=== PATIENT | female | born 1955 | race Caucasian/White ===

== ENCOUNTER 2021-11-24 18:24 | Inpatient (IN) | payer MEDICARE ==
[~2021-11-24] VITALS: Ht 149.9 cm; Wt 98.9 kg
[2021-11-24] MEDS ORDERED: ALBU8.5H8 INH (18:53)
[2021-11-24] MEDS ORDERED: ZOLP10TA2 PO (18:53)
[2021-11-24] MEDS ORDERED: HYDR-4209 PO (18:53)
[2021-11-24] MEDS ORDERED: IPRA0.2S6 NEB (18:53)
[2021-11-24] MEDS ORDERED: HYDR-3976 PO (18:53)
[2021-11-24] MEDS ORDERED: DULO60CA45 PO (18:53)
[2021-11-24] MEDS ORDERED: CLON1TAB12 PO (18:54)
[2021-11-24] MEDS ORDERED: GABA300C PO (18:54)
[2021-11-24] MEDS ORDERED: ERGO1POW10 PO (18:54)
--- NOTE | 2021-11-24 19:26 | NUR ---
Notified nursing superv. about getting a sitter for this pt. (SI and 5150 hold).
--- NOTE | 2021-11-24 19:35 | NUR ---
Dr. Campbell in room for GEN.
[2021-11-24] MEDS ORDERED: HYDROCODONE/APAP 5-325MG TABLET PO ONE (19:45)
--- NOTE | 2021-11-24 19:52 | NUR ---
pt denies suicidial ideations she states she is having depression and took vicodin that her sister . she is aware she is on a 5150 hold and will be admitted to the psych unit.
[2021-11-24] MEDS ORDERED: HYDROCODONE/APAP 5-325MG TABLET ONE (20:15)
[2021-11-24] MEDS ORDERED: ALBUTEROL SULFATE 2.5 MG/3 ML NEBU ONE (20:32)
[2021-11-24] MEDS ORDERED: IPRATROPIUM BROMIDE 0.5 MG/2.5 ML NEBU ONE (20:32)
--- NOTE | 2021-11-24 20:34 | NUR ---
after assisting the pt with the bedpan she had audible wheezing noted. I informed Dr. Campbell and we called respiratory therapy for a stat breathing treatment. Respiratory is now in the room tending to the pt.
[2021-11-24] MEDS ORDERED: ALBUTEROL SULFATE 2.5 MG/3 ML NEBU NEB ONE (20:45)
[2021-11-24] MEDS ORDERED: IPRATROPIUM BROMIDE 0.5 MG/2.5 ML NEBU NEB ONE (20:45)
[2021-11-24 21:13] LABS: *BILIRUBIN,URIN NEGATIVE (NEGATIVE); *BLOOD, URINE NEGATIVE (NEGATIVE); *CLARITY,URINE CLEAR (CLEAR); *COLOR,URINE YELLOW (YELLOW); *KETONES,URINE NEGATIVE (NEGATIVE); *UROBILINOGEN,URINE 0.2 E.U./dl (NORMAL); LEUKOCYTE ESTERASE ,URINE NEGATIVE (NEGATIVE); NITRITE, URINE NEGATIVE (NEGATIVE); PH,URINE 5.5 (5.0-8.0); UGLUCOSE NEGATIVE (NEGATIVE)
--- NOTE | 2021-11-24 22:14 | NUR ---
per Dr. Campbell pt is medically cleared for mental healtlh.
--- NOTE | 2021-11-24 22:23 | NUR ---
report given to treasure MCLAUGHLIN in mental health. pt will go to room 137a.
[2021-11-24 23:15] VITALS: BP 142/92
--- NOTE | 2021-11-24 23:28 | NUR ---
pt was transported to room 137 a in mental health unit. RN Elosia and Will there to receive the pt. pt transported with all belongings. Belongings were given to RN in mental health unit.
[2021-11-24] MEDS ORDERED: MAG HYDROX/AL HYDROX/SIMETH 30 ML LIQUID UDC PO PRN (23:45)
[2021-11-24] MEDS ORDERED: MAGNESIUM HYDROXIDE 30 ML LIQUID UDC PO PRN (23:45)
[2021-11-24] MEDS ORDERED: BLOOD SUGAR DIAGNOSTIC 1 EACH STRIP VI ONE (23:45)
[2021-11-24] MEDS ORDERED: ZOLPIDEM 5 MG TABLET PO PRN (23:45)
--- NOTE | 2021-11-24 23:50 | NUR ---
ADMITTED APPROX 20 MIN EARLIER, 66 YEARS OLD FEMALE TO [facility] ON A 5150 HOLD FOR DTS. UPON ADMISSION, PATIENT NOTE A/O X 4 CALM AND PLEASANT. SHE IS ABLE TO COMPLY WITH THE ADMISSION PROCESS. FACE TO FACE ASSESSMENT WAS DONE. ADVISEMENT WAS GIVEN TO PATIENT. SHE WAS ALSO GIVEN THE BOOKLET OF PATIENT'S RIGHT IN MENTAL HEALTH FACILITIES. PT IS UNDER THE CARE OF DR ANTONIO AND REGLA MCELROY NP. NAVI WAS NOTIFIED OF PATIENT'S ADMISSION AND ALL HER MEDICATION WERE RECONCILED. WILL CONTINUE TO MONITOR WITH Q15 MIN CHECKS.
[2021-11-25] MEDS ORDERED: IPRATROPIUM BROMIDE 0.5 MG/2.5 ML NEBU NEB PRN (00:15)
[2021-11-25] MEDS ORDERED: ALBUTEROL SULFATE 2.5 MG/3 ML NEBU NEB PRN (00:15)
[2021-11-25 07:30] VITALS: BP 134/90
[2021-11-25] MEDS ORDERED: HYDROCODONE BIT PO SCH (09:00)
[2021-11-25] MEDS ORDERED: ACETAMINOPHEN PO SCH (09:00)
[2021-11-25] MEDS: GABAPENTIN 300 MG CAPSULE PO SCH ×4 (10:02→20:22)
[2021-11-25] MEDS: HYDROCODONE/APAP 5-325MG TABLET PO PRN ×2 (10:03→18:07)
[2021-11-25] MEDS: VENLAFAXINE XR 75 MG TAB.ER.24H PO SCH (14:23)
[2021-11-25 16:00] VITALS: BP 142/97
[2021-11-25] MEDS ORDERED: CLON1TAB12 PO (16:21)
[2021-11-25] MEDS: PROTEIN SUPPLEMENT (PROSTAT) 30 ML LIQUID PO SCH (17:00)
--- NOTE | 2021-11-25 17:00 | NUR ---
Gps/Engineering Illustrator- Wheel self ind. around the unit, aking her needs known to the staff. Emotionally labile crying spells, noted. Requesting to shower, was set up, motivated. Right knee pain medicated with [place] 1 tab. po, verbalized adequate relief
[2021-11-25 20:00] VITALS: BP 143/96
[2021-11-25] MEDS: MELATONIN 3 MG TABLET PO SCH (20:21)
[2021-11-25] MEDS: TRAZODONE 50 MG TABLET PO SCH (20:22)
[2021-11-26] MEDS: LORAZEPAM 1 MG TABLET PO PRN ×2 (04:56→17:17)
[2021-11-26] MEDS: HYDROCODONE/APAP 5-325MG TABLET PO PRN ×2 (05:01→12:06)
[2021-11-26 08:07] VITALS: BP 134/89
[2021-11-26] MEDS: GABAPENTIN 300 MG CAPSULE PO SCH ×4 (08:38→20:46)
[2021-11-26] MEDS: VENLAFAXINE XR 75 MG TAB.ER.24H PO SCH (08:38)
[2021-11-26] MEDS: PROTEIN SUPPLEMENT (PROSTAT) 30 ML LIQUID PO SCH ×3 (08:39→17:17)
--- NOTE | 2021-11-26 10:45 | NUR ---
Gps/Mine Shifter- Interacting fairly well with her selected peers, continue to make needs known, attended part of her group therapy.wheeling self around the unit , noted easily gets anxious , less crying spells.
[2021-11-26 15:07] VITALS: BP 117/74
--- NOTE | 2021-11-26 16:06 | NUR ---
Gps/Mechanical Repair Worker- Complained of SOB, 02 sat checked 96%, kept HOB elevated,Called respiratory Therapist for breathing treatment , patient claimed felt better .
--- NOTE | 2021-11-26 16:08 | NUR ---
DAYNE Family Contact: DAYNE contacted pt's daughter, Leticia [phone] and was not able to leave a voicemail due to full mailbox. DAYNE will continue to work with pt, family and MD to ensure a safe and proper discharge plan.
--- NOTE | 2021-11-26 16:29 | NUR ---
DAYNE Initial Discharge Note: Pt currently resides at home with her family located at [address] [place] [address] ([phone]). DAYNE contacted pt's daughter, Leticia [phone] and was not able to leave a voicemail due to full mailbox. DAYNE will continue to work with pt, family and MD to ensure a safe and proper discharge plan.
[2021-11-26 19:51] VITALS: BP 112/66
[2021-11-26] MEDS: TRAZODONE 50 MG TABLET PO SCH (20:46)
[2021-11-26] MEDS: MELATONIN 3 MG TABLET PO SCH (20:46)
--- NOTE | 2021-11-27 06:30 | NUR ---
GPS: Pt.slept 7 hrs.last night. Less depressed when asked. Denies wanting to harm self. Re-assured prn. Needs attended. Will continue to monitor.
[2021-11-27 07:44] VITALS: BP 128/78
[2021-11-27] MEDS: GABAPENTIN 300 MG CAPSULE PO SCH ×4 (08:42→20:41)
[2021-11-27] MEDS: VENLAFAXINE XR 75 MG TAB.ER.24H PO SCH (08:42)
[2021-11-27] MEDS: HYDROCODONE/APAP 5-325MG TABLET PO PRN ×3 (08:43→21:27)
[2021-11-27] MEDS: PROTEIN SUPPLEMENT (PROSTAT) 30 ML LIQUID PO SCH ×3 (08:46→16:10)
[2021-11-27] MEDS: LORAZEPAM 1 MG TABLET PO PRN (09:54)
--- NOTE | 2021-11-27 12:21 | NUR ---
GPS: Nursing Notes: Destructive Behavior To Self: Patient is away and responding to her name, cooperative with nursing care, moving around the unit on her w/c, depressed mood and anxious affect, believes that she made a mistake, denies SI, stated "I do not want to hurt myself... I could be right now with my ... I was just sad because my sister past away...", "I do not go to groups because everyone else are disoriented and sick... I cannot interact with them...", unable to formulate a viable plan for self care, encouraged to participate in therapeutic groups, continue to monitor for safety, continue with treatment plan.
[2021-11-27] MEDS: LOPERAMIDE HCL 2 MG CAPSULE PO PRN (14:32)
[2021-11-27 16:10] VITALS: BP 137/92
[2021-11-27 19:54] VITALS: BP 129/87
[2021-11-27] MEDS: TRAZODONE 50 MG TABLET PO SCH (20:41)
[2021-11-27] MEDS: MELATONIN 3 MG TABLET PO SCH (20:41)
--- NOTE | 2021-11-28 05:57 | NUR ---
GPS: Pt.slept 9.30 hrs. through out the night. Less depressed when asked. Denies wanting to harm self. Re-assured prn. Needs attended. resting in bed.Will continue to monitor.
[2021-11-28] MEDS: HYDROCODONE/APAP 5-325MG TABLET PO PRN ×3 (06:34→18:57)
[2021-11-28 07:57] VITALS: BP 140/90
[2021-11-28] MEDS: PROTEIN SUPPLEMENT (PROSTAT) 30 ML LIQUID PO SCH ×3 (08:00→16:48)
[2021-11-28] MEDS: VENLAFAXINE XR 75 MG TAB.ER.24H PO SCH (08:46)
[2021-11-28] MEDS: GABAPENTIN 300 MG CAPSULE PO SCH ×4 (08:46→20:32)
[2021-11-28] MEDS: LORAZEPAM 1 MG TABLET PO PRN ×3 (08:46→20:36)
--- NOTE | 2021-11-28 14:05 | NUR ---
GPS: Nursing Notes: Destructive Behavior To Self: Patient is awake and responding to her name, cooperative with nursing care, compliant with her medications, depressed mood and anxious affect, denies SI/HI, assisting peers when needed, following staff directions, wishes to be home with her and her family, continue to monitor for safety, continue with treatment plan.
[2021-11-28 16:12] VITALS: BP 143/80
[2021-11-28 19:50] VITALS: BP 116/78
[2021-11-28] MEDS: TRAZODONE 50 MG TABLET PO SCH (20:32)
[2021-11-28] MEDS: MELATONIN 3 MG TABLET PO SCH (20:32)
[2021-11-29 07:42] VITALS: BP 109/68
[2021-11-29] MEDS: LORAZEPAM 1 MG TABLET PO PRN (07:48)
[2021-11-29] MEDS: HYDROCODONE/APAP 5-325MG TABLET PO PRN ×3 (07:49→20:29)
[2021-11-29] MEDS: VENLAFAXINE XR 75 MG TAB.ER.24H PO SCH (08:26)
[2021-11-29] MEDS: GABAPENTIN 300 MG CAPSULE PO SCH ×4 (08:26→20:18)
[2021-11-29] MEDS: PROTEIN SUPPLEMENT (PROSTAT) 30 ML LIQUID PO SCH ×3 (08:27→17:12)
--- NOTE | 2021-11-29 10:19 | NUR ---
Firearms Report: Territory Supervisor completed and submitted a [employer] firearms report for 5150 a danger to herself. A copy of report has been placed in patient chart.
--- NOTE | 2021-11-29 13:33 | NUR ---
GPS: Nursing Notes: Destructive Behavior To Self: Patient is awake and responding to her name, cooperative and pleasant with staff, compliant with her medications, depressed mood and anxious affect, A/Ox4, helpful with peers, denies SI/HI, believes that she made a mistake, stated "I should be at home enjoying my family...", following staff directions, cooperative with nursing care, needs minimal assistance with ADL's, minimal participation in therapeutic groups, continue to monitor for safety, continue with treatment plan.
[2021-11-29 16:02] VITALS: BP 112/69
[2021-11-29] MEDS: BLOOD SUGAR DIAGNOSTIC 1 EACH STRIP VI SCH ×2 (16:47→20:29)
[2021-11-29] MEDS: METFORMIN HCL 500 MG TABLET PO SCH (17:47)
[2021-11-29] MEDS: HYDROXYZINE PAMOATE 25 MG CAPSULE PO PRN (17:47)
[2021-11-29] MEDS: LOPERAMIDE HCL 2 MG CAPSULE PO PRN (17:47)
[2021-11-29 19:49] VITALS: BP 127/62
[2021-11-29] MEDS: TRAZODONE 50 MG TABLET PO SCH (20:18)
[2021-11-29] MEDS: MELATONIN 3 MG TABLET PO SCH (20:18)
[2021-11-30] MEDS: BLOOD SUGAR DIAGNOSTIC 1 EACH STRIP VI SCH ×4 (06:32→20:04)
[2021-11-30 07:30] VITALS: BP 121/75
[2021-11-30] MEDS: VENLAFAXINE XR 75 MG TAB.ER.24H PO SCH (09:01)
[2021-11-30] MEDS: METFORMIN HCL 500 MG TABLET PO SCH ×2 (09:01→17:05)
[2021-11-30] MEDS: GABAPENTIN 300 MG CAPSULE PO SCH ×4 (09:01→20:04)
[2021-11-30] MEDS: PROTEIN SUPPLEMENT (PROSTAT) 30 ML LIQUID PO SCH ×3 (09:02→16:02)
[2021-11-30] MEDS: HYDROCODONE/APAP 5-325MG TABLET PO PRN ×3 (09:02→22:10)
[2021-11-30] MEDS: LOPERAMIDE HCL 2 MG CAPSULE PO PRN ×2 (10:44→16:56)
--- NOTE | 2021-11-30 13:15 | NUR ---
GPS: Nursing Notes: Destructive Behavior To Self: Patient is awake and responding to her name, cooperative with nursing care, depressed mood and anxious affect, compliant with her medications, needs minimal assistance with ADL's, following staff directions, minimal participation in therapeutic groups, continue to monitor for safety, continue with treatment plan.
[2021-11-30 15:21] VITALS: BP 131/93
[2021-11-30] MEDS: ACETAMINOPHEN 325 MG TABLET PO PRN (15:59)
[2021-11-30 19:56] VITALS: BP 143/76
[2021-11-30] MEDS: TRAZODONE 50 MG TABLET PO SCH (20:04)
[2021-11-30] MEDS: MELATONIN 3 MG TABLET PO SCH (20:04)
[2021-12-01] MEDS: BLOOD SUGAR DIAGNOSTIC 1 EACH STRIP VI SCH ×4 (06:31→20:42)
[2021-12-01 07:30] VITALS: BP 144/81
[2021-12-01] MEDS: GABAPENTIN 300 MG CAPSULE PO SCH ×4 (09:02→20:02)
[2021-12-01] MEDS: VENLAFAXINE XR 75 MG TAB.ER.24H PO SCH (09:02)
[2021-12-01] MEDS: PROTEIN SUPPLEMENT (PROSTAT) 30 ML LIQUID PO SCH ×3 (09:03→17:35)
[2021-12-01] MEDS: METFORMIN HCL 500 MG TABLET PO SCH ×2 (09:04→17:35)
[2021-12-01] MEDS: HYDROCODONE/APAP 5-325MG TABLET PO PRN ×2 (09:53→20:03)
[2021-12-01] MEDS: LOPERAMIDE HCL 2 MG CAPSULE PO PRN (09:53)
--- NOTE | 2021-12-01 11:35 | NUR ---
DAYNE Family Contact Update: DAYNE contacted pt's daughter, Leticia [phone] and discussed pt's discharge order for tomorrow. Leticia is aware and agreeable with the discharge. Leticia stated she will provide transportation for the pt tomorrow between 1:30pm and 2pm. Leticia stated she will apply for [facility] home health as well. Leticia stated the pt will be under the care of Leticia and pt's .
[2021-12-01 16:00] VITALS: BP 135/89
[2021-12-01] MEDS: TRAZODONE 50 MG TABLET PO SCH (20:02)
[2021-12-01] MEDS: MELATONIN 3 MG TABLET PO SCH (20:02)
[2021-12-01 20:05] VITALS: BP 120/85
[2021-12-01] MEDS: HYDROXYZINE PAMOATE 25 MG CAPSULE PO PRN (22:12)
[2021-12-01] MEDS: ACETAMINOPHEN 325 MG TABLET PO PRN (22:14)
[2021-12-02] MEDS: BLOOD SUGAR DIAGNOSTIC 1 EACH STRIP VI SCH ×2 (06:33→12:29)
--- NOTE | 2021-12-02 06:39 | NUR ---
GPS: Pt.slept 7.15 last night. B.S. at this time is 144mg/dl. Denies SI at this time. Looking forward to her discharge later. No loose stools reported. Denies pain at this time. Safe environment provided.
[2021-12-02 07:30] VITALS: BP 126/72
[2021-12-02] MEDS: PROTEIN SUPPLEMENT (PROSTAT) 30 ML LIQUID PO SCH ×2 (08:00→12:29)
[2021-12-02] MEDS: METFORMIN HCL 500 MG TABLET PO SCH (08:44)
[2021-12-02] MEDS: VENLAFAXINE XR 75 MG TAB.ER.24H PO SCH (08:44)
[2021-12-02] MEDS: GABAPENTIN 300 MG CAPSULE PO SCH ×2 (08:45→12:36)
[2021-12-02] MEDS: HYDROCODONE/APAP 5-325MG TABLET PO PRN (08:59)
[2021-12-02] MEDS: LOPERAMIDE HCL 2 MG CAPSULE PO PRN ×2 (09:00→12:39)
--- NOTE | 2021-12-02 11:52 | NUR ---
DAYNE Discharge Note: Pt will be [place] at [address] [place] [address] ([phone]) via private vehicle transportation by patients daughter, Leticia ([phone]) between 1:30PM and 2PM. DAYNE spoke with pts daughter, Leticia ([phone]) who states she is ready to accept the patient today under her and pts husbands care. Pt is aware and agreeable with discharge plan. Pt is alert and oriented x4, is unable to plan for self-care at this time. However, pt is willing to accept care at home under the care of her daughter, her and home health services. Pt denies any suicidal or homicidal ideation. Pt will follow-up with an outpatient Psychiatrist and Psychologist at [facility] located at [address] [place] [id number] ([phone]) via teletherapy on Monday, the 2021 at 1:30PM confirmed by Zulema. Pt will follow-up with her outpatient primary Doctor upon discharge. Pt presents with calm mood and congruent affect. DAYNE provided home health information, such as [facility] and their contact with Service Desk at per [place] request for pts continuation of care assistance. DAYNE provided Leticia with a copy of the registration process directions and contact information available Monday through Monday from 9am to 5pm for further assistance. PHARMACY: [facility] located at [address] [place], [place] ([phone]).
--- NOTE | 2021-12-02 13:46 | NUR ---
Gps/Rabbit Dresser- daughter Leticia in to pick up driver patient . reviewed discharged instructions, prescriptions/medications , diet, safety ,skin care, follow up with her Psychiatrist @ [facility] via teletherapy on 2021 at 1330 pm, patient verbalized understanding. All valuables, belongings returned back to patient. Patient in good spirit, denies any discomfort, claimed her diarrhrea stopped. Discharged to home via private car , no new complaints noted.
== END 2021-12-02 14:00 | disposition home or self-care (01) | DRG 885 ==
LOC: ER 18:32 → EDSEX 22:34 → GPS 22:34
PROVIDERS: ADMIT Psychiatry & Neurology Psychiatry
DX: F33.2 Major depressive disorder, recurrent severe without psychotic features (principal); E11.65 Type 2 diabetes mellitus with hyperglycemia; R45.851 Suicidal ideations; E44.0 Moderate protein-calorie malnutrition; Z68.41 Body mass index [BMI] 40.0-44.9, adult; F41.9 Anxiety disorder, unspecified; J45.909 Unspecified asthma, uncomplicated; M17.11 Unilateral primary osteoarthritis, right knee; Z98.84 Bariatric surgery status; Z79.899 Other long term (current) drug therapy; R19.7 Diarrhea, unspecified
CPT/HCPCS: 36415; 71045; 93005; 94640; 97161; A4663; J3590